=== PATIENT | female | born 1960 | race Caucasian/White ===

== ENCOUNTER 2025-02-22 11:16 | Outpatient (CLI) | payer MEDICARE, SELFPAY | END 2025-02-22 11:17 | disposition home or self-care (01) | LOC: LKVREF 11:17 | PROVIDERS: PCP Emergency Medicine; Visit Provider Emergency Medicine | DX: R22.0 Localized swelling, mass and lump, head (principal) | CPT/HCPCS: 86140 ==

== ENCOUNTER 2025-03-01 09:44 | Outpatient (CLI) | payer MEDICARE, SELFPAY ==
--- NOTE | 2025-03-01 10:00 | CRLHL7_ITS ---
For Patients: As a result of the Century Cures Act, medical imaging exams and procedure reports are released immediately into your electronic medical record. You may view this report before your referring provider. If you have questions, please contact your health care provider. Indication: Facial tenderness Technique: Noncontrast axial CT of the facial bones with coronal reformats are provided. No comparisons. Findings: The visualized paranasal sinuses are clear. The ostiomeatal complexes are patent bilaterally. The visualized intraorbital contents appear within normal limits. The visualized osseous structures of the face appear intact. No evidence of suspicious fluid collection seen within the soft tissues of the face. Shotty bilateral level 1 and level 2 lymph nodes likely reactive in nature. Impression: 1. No radiographic evidence of acute osseous injury. 2. No convincing evidence of suspicious fluid collections within the visualized soft tissues of the face to suggest presence of an abscess. Please note that all CT scans at this facility use dose modulation, iterative reconstruction, and/or weight-based dosing when appropriate to reduce radiation dose to as low as reasonably achievable. Dictated by Mehran Garza MD @ 03/01/2025 4:01:28 PM (Electronically Signed)
== END 2025-03-01 09:45 | disposition home or self-care (01) ==
PROVIDERS: PCP Emergency Medicine; Visit Provider Emergency Medicine
DX: R22.0 Localized swelling, mass and lump, head (principal)
CPT/HCPCS: 70486

== ENCOUNTER 2025-03-30 09:16 | Outpatient (CLI) | payer MEDICARE, SELFPAY ==
[2025-03-31 21:51] LABS: HPV Source Cervical; HPV, High Risk by TMA Not Detected
== END 2025-03-30 09:17 | disposition home or self-care (01) ==
PROVIDERS: PCP Emergency Medicine; Visit Provider Emergency Medicine
DX: Z12.4 Encounter for screening for malignant neoplasm of cervix (principal); Z11.51 Encounter for screening for human papillomavirus (HPV)
CPT/HCPCS: 80053; 80061; 87624; 87625; 88141; 88142

== ENCOUNTER 2025-04-07 08:59 | Outpatient (CLI) | payer MEDICARE, SELFPAY | END 2025-04-07 09:00 | disposition home or self-care (01) | LOC: NFLDREF 04-10 13:12 | PROVIDERS: PCP Emergency Medicine; Referring Provider Emergency Medicine; Visit Provider Emergency Medicine | DX: M85.9 Disorder of bone density and structure, unspecified (principal); Z13.6 Encounter for screening for cardiovascular disorders | CPT/HCPCS: 80053; 80061 ==

== ENCOUNTER 2025-04-18 08:55 | Outpatient (CLI) | payer MEDICARE, SELFPAY ==
--- NOTE | 2025-04-18 10:16 | P.ANES_ITS ---
Anesthesia Charges Start Date/Time Anesthesia Start Date: 04/18/25 Anesthesia Start Time: 09:53 Stop Date/Time Anesthesia Stop Date: 04/18/25 Anesthesia Stop Time: 10:13 Coding CPT Codes CPT Codes: ANES LWR INTST SCR COLSC - 41424 ([id number]) P2 - PATIENT W/MILD SYST DISEASE, QK - DIRECTOR ASSET 2-4 CNCRNT ANES PROC, QX - CD REACTOR OPERATOR HEAD SVC W/ MD MED DIRECTION
--- NOTE | 2025-04-18 10:16 | W.ANESCHARGE ---
Anesthesia Charges Start Date/Time Anesthesia Start Date: 04/18/25 Anesthesia Start Time: 09:53 Stop Date/Time Anesthesia Stop Date: 04/18/25 Anesthesia Stop Time: 10:13 Coding CPT Codes CPT Codes: ANES LWR INTST SCR COLSC - 34107 ([id number]) P2 - PATIENT W/MILD SYST DISEASE, QK - VISUAL MERCHANDISING MANAGER 2-4 CNCRNT ANES PROC, QX - HOURLY SIGN LANGUAGE INTERPRETER SVC W/ MD MED DIRECTION
--- NOTE | 2025-04-18 10:23 | P.ANES_ITS ---
Anesthesia Charges Start Date/Time Anesthesia Start Date: 04/18/25 Anesthesia Start Time: 09:53 Stop Date/Time Anesthesia Stop Date: 04/18/25 Anesthesia Stop Time: 10:13 Coding CPT Codes CPT Codes: ENRIQUETA LWR INTST SCR COLSC - 21876 ([id number]) QK - HOSE INSPECTOR AND PATCHER 2-4 CNCRNT ENRIQUETA PROC, QX - LEARNING SUPPORT ASSISTANT SVC W/ MD MED DIRECTION, P2 - PATIENT W/MILD SYST DISEASE
--- NOTE | 2025-04-18 10:23 | W.ANESCHARGE ---
Anesthesia Charges Start Date/Time Anesthesia Start Date: 04/18/25 Anesthesia Start Time: 09:53 Stop Date/Time Anesthesia Stop Date: 04/18/25 Anesthesia Stop Time: 10:13 Coding CPT Codes CPT Codes: ENRIQUETA LWR INTST SCR COLSC - 62556 ([id number]) QK - E LEARNING DEVELOPER 2-4 CNCRNT ENRIQUETA PROC, QX - STEEL ENGRAVER SVC W/ MD MED DIRECTION, P2 - PATIENT W/MILD SYST DISEASE
== END 2025-04-18 08:56 | disposition home or self-care (01) ==
LOC: OP CLINIC 08:56
PROVIDERS: PCP Emergency Medicine; Visit Provider Surgery
DX: Z12.11 Encounter for screening for malignant neoplasm of colon (principal)
CPT/HCPCS: 00812; 45378; J2704

== ENCOUNTER 2025-08-22 09:00 | Outpatient (RCR) | payer MEDICARE, SELFPAY ==
--- NOTE | 2025-04-25 11:26 | PT.OPE ---
PT [facility] PT [facility] Out[facility] Eval Start: 04/25/25 10:13 Freq: Status: Active Protocol: Document 04/25/25 10:13 ESTUARDO (Rec: 04/25/25 10:53 ESTUARDO [id number]) E-signed By Jose Luis Chu, PT, ATC Physical Therapy Outpatient Evaluation Insurance Information Insurance Name Medicare B,[facility] Medical Diagnosis M70.61 Trochanteric bursitis, right hip M76.891 other specified enthesopathies of right lower limb Treating Diagnosis R hip pain Referring MD Bahena Subjective Preferred Name Mimi Subjective Complains of R sided hip pain with walking and laying upon. Symptom onset 6 months ago of insidious cause. No PMHx of similar pain symptoms or injury. Pain can be as high as 8-9/10 and limits both standing and walking durations. Is not currently stretching the hip and uses ice infrequently. R ankle fracture and ORIF x 5 years ago. Low back pain history and it is currently symptomatic because of the hip symptoms she thinks. Pain Comments 8-/ Date of Last 04/14/25 Physician Visit Current Work Status Unemployed Precautions Weight Bearing Full Weight Bearing Status Therapy Limitations/ Not Limited Systems Review Objective Range of Motion Hip ER-IR: R 40-10 L 45-20 Hamstrings are both tight, SLR 65-70 degrees Hip flexors and quads show normal range limits. Strength Hip ABD R 4/5, L 4+/5 remaining patterns 5/5 Swelling None apparent Palpation Tender over R hip gluteus medius, quin and piriformis muscles. Also tight in TFL and proximal ITB Direct tenderness over greater trochanteric bursa-R>L Balance & Gait Gait antalgic, decreased R stride length and WB'ing time. Posture Stands with increased lumbar lordosis-anterior tilted pelvis, increased thoracic kyphosis. Sensation/Reflexes Normal an symetric Assessment Assessment/ Mariya is a pleasant 65 year old woman referred to PT Impression because of R lateral hip pain-greater trochanteric bursitis. Associated factors include tight hip external rotator muscles, tight lateral hip-ITB and TFL. Her R ankle ORIF 5 years ago might be the reason for her antalgic gait as some range limitations exist in that joint. Skilled PT is recommended to address her lateral R hip pain, antalgic gait pattern and tight soft tissue structures. She appears eager and willing to participate in the PT program and perform assigned exercise outside of therapy sessions. Primary Functional Standing Limitations Walking Transfers after sustained sitting Plan of Care Rehabilitation Good Potential Physical Therapy 1.[place] with HEP and soft tissue manipulation. Goals 2.Decrease subjective pain amount x 50% or more while laying upon R hip in bed. 3.Improved gait pattern showing increase in R LE stride length and WB'ing time. Coordination/ Referral Source Communication With Treatment Plan/ Gait Training,Ice/Cold/Vasopneumatic,Joint Mobilization Direct Interventions ,Manual Therapy,Self-Care/Home Management,Therapeutic Activities,Therapeutic Exercises Frequency/Duration 6-12 visits Patient Will Be Independent w/HEP,Independently Progressing Discharged From Therapy Evaluation Billing Untimed Code 30 Treatment Minutes PT Eval No Charge No Complexity Low Certification Information Initial 04/25/25 Certification Date Ending Certification 07/26/25 Date Provider Signature Yes Required Provider Signature POC & Medical Necessity Shows Agreement With Physician NPI Number Write NPI# Here Physician Comment/ : Change Physician Signature Please Sign/Date Here & Date Requested
--- NOTE | 2025-07-25 11:56 | PT.OPDN ---
PT [facility] Daily Note PT [facility] Daily Note Start: 04/25/25 10:13 Freq: Status: Active Protocol: Document 07/25/25 11:45 ESTUARDO (Rec: 07/25/25 11:56 ESTUARDO [id number]) E-signed By Jose Luis Chu, PT, ATC PT OP Daily Progress Note Visit Information Note Type Daily Note,Recert/Progress Note Visit Number 8 Insurance Authorized tbd Visits Physician Authorized eval and treat Visits Insurance Information Insurance Name Medicare B,[facility] Medical Diagnosis M70.61 Trochanteric bursitis, right hip M76.891 other specified enthesopathies of right lower limb Treating Diagnosis R hip pain Referring MD Bahena Subjective Preferred Name Mimi Subjective Return of R hip pain following an episode of hurting her R knee when stepping down from an elevated surface. Orthopedist performed xrays which showed degenerative changes-OA and determined possibility of a meniscal tear presence. Suggested continuing PT to address the R knee pain and return of R hip soreness. Requesting to continue PT with hopes of returning R hip to condition it was prior to her leaving on vacation one month ago. Pain Comments -02/17 Date of Last 04/14/25 Physician Visit Precautions Weight Bearing Full Weight Bearing Status Home Exercise Home Exercise Dibbz access code [email or web address] Comments Objective Patient Instructed Yes in Risks/Benefits Therapeutic Exercise Therapeutic Exercise 40 Minutes (minutes) Therapeutic Exercise Bike x 8 min : To Restore Lateral, forward and backward Monster walks, red band. Functional Status Hip Ext and ER using red tband 2x5 per leg. Leg press 30# 3x10 TKE CKC cable 3.5 plates, 2x15 Seated R hip ER and IR red tband 2x12 each Sidelying R hip ABD 2x12 3# Sidelying R and L hip clamshells 2x15 red tband Supine hip ABD with leg extension 2x10 Supine Sball bridge and curl 2x10 Supine hip rotation blue tband 2x10 each Manual Therapy Techniques Manual Therapy 12 Minutes (minutes) Manual Therapy STM, DTM, MFR, CFFM to R lateral hip, glut muscles and Techniques fascia Passive stretching to hip ER's and ABD's Treatment Minutes Timed Code Treatment 52 Minutes Total Treatment Time 52 Billing Units Manual Therapy Units 1 Therapeutic Exercise 2 Units Assessment/Impression Assessment/ Some return of tightness in the R gluteal muscle group Impression along with increased tension in the hip ABD muscles. The compensation as a result of the R knee flare up is likely to blame for the return of R hip symptoms. I am confident additional therapy can address and lessen tension that has returned in the R hip muscles as well as facilitate gains in R knee condition via ROM and LE strength work. Primary Functional Standing Limitations Walking Transfers after sustained sitting Plan of Care Physical Therapy 1.[place] with HEP and soft tissue manipulation. Goals 2.Decrease subjective pain amount x 50% or more while laying upon R hip in bed. 3.Improved gait pattern showing increase in R LE stride length and WB'ing time. Daily Plan of Care Continue per POC Daily Plan of Care Requesting MD signature on PT Recertification to allow Comments for continued therapy to address return of R hip symptoms and new onset of R knee instability/OA/pain. Recertification Information Initial 04/25/25 Certification Date Recertification 07/25/25 Start Date Recertification Due 10/25/25 Date Reasons to Continue Return of R hip pain and muscle stiffness creating Skilled Therapy difficulty with sustained standing or walking, car transfers and stairs. R knee OA would benefit from ROM, strength and stability training. Rehabilitation good Potential Continued Plan of Ther ex Care and Neuromuscular training Interventions Endurance training Provider Signature POC & Medical Necessity Shows Agreement With
== END 2025-08-22 09:52 | disposition home or self-care (01) ==
PROVIDERS: PCP Emergency Medicine; Visit Provider Orthopaedic Surgery Sports Medicine
DX: M76.891 Other specified enthesopathies of right lower limb, excluding foot (principal); M70.61 Trochanteric bursitis, right hip; Z51.89 Encounter for other specified aftercare
CPT/HCPCS: 97110; 97140; 97161